=== PATIENT | male | born 1950 | race Caucasian/White ===

== ENCOUNTER → 2017-07-05 | Outpatient (CLI) | payer MEDICARE, OTHER | LOC: COL.RAD 08:00 | DX: R10.11 Right upper quadrant pain (principal) ==

== ENCOUNTER → 2017-07-16 | Outpatient (CLI) | payer MEDICARE, OTHER | LOC: COL.RAD 07:24 | DX: K76.89 Other specified diseases of liver (principal); N28.1 Cyst of kidney, acquired; M47.816 Spondylosis without myelopathy or radiculopathy, lumbar region; M25.78 Osteophyte, vertebrae; M48.06 Spinal stenosis, lumbar region | CPT/HCPCS: Q9967 ==